=== PATIENT | male | born 1985 | race Caucasian/White ===

== ENCOUNTER 2016-05-21 16:51 | Emergency (ER) | payer MEDICAID ==
[~2016-05-21] VITALS: Ht 190.5 cm; Wt 88.5 kg
[2016-05-21 17:00] VITALS: BP 121/70
== END 2016-05-21 17:19 | disposition home or self-care (01) ==
LOC: ER 16:55
DX: H91.93 Unspecified hearing loss, bilateral (principal); F17.210 Nicotine dependence, cigarettes, uncomplicated
CPT/HCPCS: 99281; 99406; A4606; Z7610; Z7502

== ENCOUNTER 2018-05-11 23:15 | Emergency (ER) | payer SELFPAY ==
[~2018-05-11] VITALS: Ht 190.5 cm; Wt 86.2 kg
[2018-05-11 23:44] VITALS: BP 134/96
== END 2018-05-12 00:32 | disposition home or self-care (01) ==
LOC: ER 23:21
DX: J03.90 Acute tonsillitis, unspecified (principal); F17.200 Nicotine dependence, unspecified, uncomplicated